=== PATIENT | female | born 1990 | race Caucasian/White ===

== ENCOUNTER 2021-09-29 11:12 | Emergency (ER) | payer OTHER ==
[~2021-09-29] VITALS: Ht 165.1 cm; Wt 68.2 kg
--- NOTE | 2021-09-29 13:12 | NUR ---
PT SLEEPING AT THIS TIME.
--- NOTE | 2021-09-29 14:23 | NUR ---
pt woke up up in between and went back to sleep again .will cont to monitor .RR wnl .
--- NOTE | 2021-09-29 14:23 | NUR ---
[facility], PT WAS COVID TESTED THIS MORNING AND RESULTS WERE NEGATIVE
[2021-09-29] MEDS ORDERED: HYDR-3927 PO (14:52)
[2021-09-29] MEDS ORDERED: MELA1TAB28 PO (14:52)
[2021-09-29] MEDS ORDERED: SERT-434 PO (14:52)
[2021-09-29] MEDS ORDERED: FLUT16SP11 BOTHNARES ×2 (14:54→16:57)
[2021-09-29] MEDS ORDERED: TRET45GE TOP (14:54)
[2021-09-29] MEDS ORDERED: ONDA-103 PO (15:00)
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
--- NOTE | 2021-09-29 16:24 | NUR ---
Pt. was cooperative with assessment at bedside. She reports she is no longer taking Sertraline. Her medication reconciliation will be updated.
[2021-09-29] MEDS ORDERED: HYDR-3686 PO (16:57)
[2021-09-29] MEDS ORDERED: MELA3CAP2 PO (16:57)
--- NOTE | 2021-09-29 16:59 | NUR ---
[facility] at bedside to evaluate pt. at this time.
--- NOTE | 2021-09-29 17:51 | NUR ---
PT. continues to lay in bed sleeping at this time.
--- NOTE | 2021-09-29 18:30 | NUR ---
Assumed patient care. Patient is cooperative, no distress. [facility] is releasing her hold. She will be discharged to the [facility].
--- NOTE | 2021-09-29 19:00 | NUR ---
Patients mental health hold was removed by the [facility]. We are awaiting transportation/taxi to take patient to the [facility].
--- NOTE | 2021-09-29 19:32 | NUR ---
Patient is resting quietly, she is cooperative. She awaits her cab.
--- NOTE | 2021-09-29 20:43 | NUR ---
Patient is resting quietly. She is in street clothes now. Awaiting taxi.
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
[2021-09-29 21:20] VITALS: BP 109/73
== END 2021-09-29 23:59 | disposition home or self-care (01) ==
LOC: ER 11:13
DX: R45.851 Suicidal ideations (principal); F15.10 Other stimulant abuse, uncomplicated; F11.10 Opioid abuse, uncomplicated; Z79.899 Other long term (current) drug therapy
CPT/HCPCS: 36415; 84443; 99285

== ENCOUNTER 2021-12-12 14:20 | Emergency (ER) | payer OTHER ==
[~2021-12-12] VITALS: Ht 167.6 cm; Wt 66.0 kg
[~2021-12-12 14:20] MED LIST: FLUT16SP11 BOTHNARES; HYDR-3686 PO; MELA3CAP2 PO
[2021-12-12 14:32] VITALS: BP 128/84
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
[2021-12-12] MEDS ORDERED: ketorolac trometh. 30mg/ml inj. IM ONE (17:50)
[2021-12-12] MEDS ORDERED: azithromycin 250mg tablet PO ONE (17:55)
[2021-12-12] MEDS ORDERED: LEVONORGESTREL 1.5MG tablet 1.5 MG TABLET PO ONE (17:55)
[2021-12-12] MEDS ORDERED: CefTRIAXone 500MG IM Kit w/LIDOcaine IM ONE (17:55)
[2021-12-12] MEDS ORDERED: TINIDAZOLE 500 MG TABLET PO ONE (18:00)
[2021-12-12 19:16] LABS: URINE HCG NEGATIVE (NEG)
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
== END 2021-12-12 23:19 | disposition left against medical advice (07) ==
LOC: ER 14:21 → EEVIPCON 14:21 → ER 23:19
DX: S93.402A Sprain of unspecified ligament of left ankle, initial encounter (principal); F17.200 Nicotine dependence, unspecified, uncomplicated; F12.10 Cannabis abuse, uncomplicated; F11.10 Opioid abuse, uncomplicated; T74.21XA Adult sexual abuse, confirmed, initial encounter; Y93.89 Activity, other specified; Y92.89 Other specified places as the place of occurrence of the external cause; Y99.8 Other external cause status
CPT/HCPCS: 70450; 73610; 73630; 81025; 96372; 99285; J0696; J1885